=== PATIENT | male | born 1995 | race Caucasian/White ===

== ENCOUNTER 2019-03-29 23:58 | Emergency (ER) | payer OTHER, SELFPAY ==
[2019-03-30 00:07] VITALS: BP 141/72; PULSE 98; RESP 16; TEMP 36.6; O2SAT 98
--- NOTE | 2019-03-30 01:09 | ED_ITS ---
HPI - Anxiety General Chief Complaint: Anxiety Stated Complaint: Anxiety Time Seen by Provider: 03/30/19 01:02 Source: patient and EMS Mode of arrival: EMS Limitations: no limitations History of Present Illness HPI narrative: Patient is a 23-year-old male history of presenting anxiety heart palpitations chest pain. He has had an anxiety attack sometime he is not sure what triggered this evening. EMS arrived he thought he might be okay to just stay at home however changes might want to be evaluated. He overall is feeling much better. complaint: anxiety Onset (ago): minute(s) Quality: improving Related Data Allergies Allergy/AdvReac Type Severity Reaction Status Date / Time No Known Drug Allergies Allergy Verified 03/30/19 00:10 Review of Systems Review of Systems ROS Unobtainable: All systems reviewed & are unremarkable except as noted in HPI and below Constitutional Constitutional: Denies chills, Denies fever(s), Denies lethargy and Denies weakness Eyes Eyes: Denies change in vision, Denies eye discharge, Denies irritation and Denies loss of vision ENT Ears, Nose, Mouth, and Throat: Denies change in voice, Denies neck pain and Denies sore throat Cardiovascular Cardiovascular: Reports chest pain, Reports palpitations, Denies dyspnea and Denies dyspnea on exertion Respiratory Respiratory: Denies cough, Denies dyspnea, Denies dyspnea on exertion and Denies wheezing Gastrointestinal Gastrointestinal: Denies abdominal pain, Denies change in bowel habits, Denies diarrhea, Denies nausea and Denies vomiting Genitourinary Genitourinary: Denies hematuria, Denies flank pain, Denies urinary incontinence and Denies urinary urgency Musculoskeletal Musculoskeletal: Denies neck pain Integumentary/Breasts Skin/Breast: Denies pruritus, Denies erythema, Denies rash and Denies wounds Neurologic Neurologic: Denies loss of vision and Denies weakness Psychiatric Psychiatric: Reports anxiety Endocrine Endocrine: Reports palpitations Allergic/Immunologic Allergic/Immunologic: Denies wheezing [facility] Medical History Anxiety (Acute) Social History Smoking Status: Former smoker Social History Smoking Status: Former smoker Exam Initial Vital Signs Initial Vital Signs: Vital Signs Temperature 98 F 03/30/19 00:07 Pulse Rate 98 H 03/30/19 00:07 Respiratory Rate 16 03/30/19 00:07 Blood Pressure 141/72 H 03/30/19 00:07 Pulse Oximetry 98 03/30/19 00:07 GENERAL: Sleeping easily arousable no obvious anxiety or panic at this time HEENT: Head atraumatic,EOMI, pupils reactive CARDIOVASCULAR: Regular rate and rhythm without murmurs, rubs or gallops. RESPIRATORY: Breath sounds equal bilaterally, no wheezes rales or rhonchi. ABDOMEN: Soft, nontender. Normoactive bowel sounds all 4 quadrants. No guarding or rebound. EXTREMITIES: Normal range of motion, no clubbing or edema. Neurovascularly intact NEUROLOGICAL: Alert and oriented x4.Normal gait and speech. Cranial nerves II through XII grossly intact. SKIN: Warm, dry, no laceration, no petechiae, no rashes or lesions. Course Orders Ordered: ED Orders 03/30/19 00:13 EKG-12 Lead Urgent Vital Signs Vital signs: Vital Signs - 8 hr 03/30/19 00:07 03/30/19 01:21 Temperature 98 F 98.4 F Pulse Rate 98 H 76 Respiratory Rate 16 14 Blood Pressure 141/72 H 119/69 Pulse Oximetry 98 MDM - Anxiety ECG Data Attestation: I personally reviewed and interpreted this ECG as follows: Prior ECG tracings: not available for review Interpretation: Normal sinus rhythm rate [address] changes no T-wave inversions p.r. interval 139 QRS 105 QTC 388 MDM Narrative Medical decision making narrative: Patient took his home medications sleeping. Does not appear anxious. At this time feels ready and able to go home. He denies any thoughts of suicide or harming anyone. He was previously seeing a therapist however she moved it he hasnt seen anyone lately. Discharge Plan Departure Patient Disposition: Home Clinical Impression: Acute anxiety Discharge Date/Time: 03/30/19 01:22 Instructions: DI for Anxiety -- Adult Activity Restrictions/Additional Instructions: *You have been diagnosed with anxiety *What to do: *Continue to take medications as directed *Follow up with your primary care provider in 2-3 days *Return to ER if you should have anxiety not relieved with coping mechanisms, chest pain heart palpitations or any new, worsening or concerning symptoms Referrals: [facility] [Outside]
[2019-03-30 01:21] VITALS: BP 119/69; PULSE 76; RESP 14; TEMP 36.9
== END 2019-03-30 01:22 | disposition home or self-care (01) ==
PROVIDERS: Emergency Provider Emergency Medicine
DX: F41.8 Other specified anxiety disorders (principal)
CPT/HCPCS: 93005; 99282; 99283